=== PATIENT | female | born 1955 | race Caucasian/White ===

== ENCOUNTER 2023-03-20 10:44 | Outpatient (REF) | payer MEDICARE, SELFPAY ==
[2023-03-20 15:25] LABS: Hemoglobin A1C 5.8 % (<5.7)
[2023-03-20 15:55] LABS: Calculated LDL 45 mg/dL (<100); Cholesterol 137 mg/dL (<200); HDL Cholesterol 51 mg/dL (40-60); TSH 1.22 uIU/mL (0.36-3.74); Triglyceride 207 mg/dL (<150)
[2023-03-20 16:36] LABS: Vitamin D 25 Total 41.5 ng/mL (30-100)
== END 2023-03-20 10:45 | disposition home or self-care (01) ==
LOC: NCHCN 10:44
PROVIDERS: Visit Provider Internal Medicine
DX: E03.9 Hypothyroidism, unspecified (principal); I10 Essential (primary) hypertension; E55.9 Vitamin D deficiency, unspecified; R73.03 Prediabetes; E78.00 Pure hypercholesterolemia, unspecified
CPT/HCPCS: 80061; 82306; 83036; 84443

== ENCOUNTER 2023-10-03 11:33 | Outpatient (REF) | payer MEDICARE, SELFPAY ==
[2023-10-03 15:06] LABS: Hemoglobin A1C 5.5 % (<5.7)
[2023-10-03 15:16] LABS: Anion Gap 7.2 mmol/L (3-11); BUN 13 mg/dL (7-18); CO2 26.8 mmol/L (21.0-32.0); CREATININE 0.8 mg/dL (0.55-1.02); Calcium 9.1 mg/dL (8.5-10.1); Calculated LDL 46 mg/dL (<100); Chloride 109 mmol/L (98-107); Cholesterol 131 mg/dL (<200); Estimated GFR 81.21 (mL/min/1.73m2); Glucose 94 mg/dL (74-106); HDL Cholesterol 50 mg/dL (40-60); Potassium 4.5 mmol/L (3.5-5.1); Sodium 143 mmol/L (136-145); TSH 0.49 uIU/mL (0.36-3.74); Triglyceride 179 mg/dL (<150)
== END 2023-10-03 11:34 | disposition home or self-care (01) ==
LOC: NCHCN 11:33
PROVIDERS: Visit Provider Internal Medicine
DX: E03.9 Hypothyroidism, unspecified (principal); E78.00 Pure hypercholesterolemia, unspecified; R73.03 Prediabetes
CPT/HCPCS: 80048; 80061; 83036; 84443

== ENCOUNTER 2024-04-07 22:10 | Outpatient (REF) | payer MEDICARE, SELFPAY ==
[2024-04-07 17:16] LABS: Calculated LDL 40 mg/dL (<100); Cholesterol 118 mg/dL (<200); HDL Cholesterol 49 mg/dL (40-60); TSH 0.11 uIU/Ml (0.36-3.74); Triglyceride 149 mg/dL (<150)
[2024-04-07 18:12] LABS: Hemoglobin A1C 5.5 % (<5.7)
== END 2024-04-07 22:11 | disposition home or self-care (01) ==
LOC: NCHCN 22:10
PROVIDERS: PCP Internal Medicine; Visit Provider Internal Medicine
DX: E03.9 Hypothyroidism, unspecified (principal); E78.2 Mixed hyperlipidemia; R73.03 Prediabetes
CPT/HCPCS: 80061; 83036; 84443

== ENCOUNTER 2024-05-28 15:25 | Outpatient (REF) | payer MEDICARE, SELFPAY ==
[2024-05-28 21:35] LABS: TSH 0.25 uIU/Ml (0.36-3.74)
== END 2024-05-28 15:26 | disposition home or self-care (01) ==
LOC: NCHCN 15:25
PROVIDERS: PCP Internal Medicine; Visit Provider Internal Medicine
DX: E03.9 Hypothyroidism, unspecified (principal)
CPT/HCPCS: 84443

== ENCOUNTER 2024-10-07 09:37 | Outpatient (REF) | payer MEDICARE, SELFPAY ==
[2024-10-07 15:02] LABS: Anion Gap 4.5 mmol/L (3-11); BUN 11 mg/dL (7-18); CO2 31.5 mmol/L (21.0-32.0); CREATININE 0.9 mg/dL (0.55-1.02); Calculated LDL 68 mg/dL (<100); Chloride 109 mmol/L (98-107); Cholesterol 161 mg/dL (<200); Estimated GFR 70.07 (mL/min/1.73m2); Glucose 89 mg/dL (74-106); HDL Cholesterol 57 mg/dL (40-60); Potassium 4.7 mmol/L (3.5-5.1); Sodium 145 mmol/L (136-145); TSH 1.86 uIU/mL (0.36-3.74); Triglyceride 184 mg/dL (<150); Vitamin D 25 Total 28.3 ng/mL (30-100)
== END 2024-10-07 09:38 | disposition home or self-care (01) ==
LOC: NCHCN 09:37
PROVIDERS: PCP Internal Medicine; Visit Provider Internal Medicine
DX: E78.00 Pure hypercholesterolemia, unspecified (principal); E03.9 Hypothyroidism, unspecified; E55.9 Vitamin D deficiency, unspecified
CPT/HCPCS: 80048; 80061; 82306; 84443